=== PATIENT | female | born 1975 | race Hispanic/Latino ===

== ENCOUNTER 2016-12-07 18:34 | Emergency (ER) | payer BC ==
[2016-12-07 20:56] LABS: Anion Gap 13 mmol/L; BUN/Creatinine Ratio 24.28; Blood Urea Nitrogen 17 mg/dL (7-17); Calcium 8.3 mg/dL (8.4-10.2); Carbon Dioxide 29 mmol/L (22-30); Chloride 101.2 mmol/L (98-107); Glucose 84 mg/dL (65-100); Potassium 3.5 mmol/L (3.6-5.0); Sodium 140 mmol/L (137-145)
[2016-12-07 20:57] LABS: Hematocrit 37.4 % (30.3-42.9); Hemoglobin 12.4 gm/dl (10.1-14.3); Mean Corpuscular HGB Conc 33 % (30-34); Mean Corpuscular Hemoglobin 32 pg (28-32); Mean Corpuscular Volume 96 fl (79-97); Platelet Count 221 K/mm3 (140-440); Red Blood Count 3.89 M/mm3 (3.65-5.03); Red Cell Distribution Width 13.5 % (13.2-15.2); White Blood Count 10.7 K/mm3 (4.5-11.0)
[2016-12-07 21:49] LABS: Blastocytes % (Manual) 0 %; Hypochromasia 1+; Poikilocytosis Few
[2016-12-07 21:50] LABS: Diff Status Complete
--- NOTE | 2016-12-08 05:15 | Emergency Department Report ---
ED Shortness of Breath HPI - General Chief Complaint: Dyspnea/Respdistress Stated Complaint: CHEST PAIN,SOB Time Seen by Provider: 12/08/16 05:06 Source: patient Mode of arrival: Ambulatory Limitations: No Limitations - History of Present Illness Initial Comments: Patient is a 41-year-old female here with complaint of worsening body swelling and shortness of breath. States she's felt like she's been putting on weight over the past few weeks. Denies fevers chills nausea vomiting. No chest pain. She does have some mild peripheral edema. MD Complaint: shortness of breath -: Gradual Severity: Unable to Determine Improves With: nothing Worsens With: nothing Associated Symptoms: other (mild peripheral edema) Treatments Prior to Arrival: none - Related Data Allergies Allergy/AdvReac Type Severity Reaction Status Date / Time No Known Allergies Allergy Unverified 12/07/16 18:48 ED Review of Systems ROS: Stated complaint: CHEST PAIN,SOB Other details as noted in HPI Constitutional: no symptoms reported. denies: chills Respiratory: denies: shortness of breath Cardiovascular: edema. denies: chest pain, palpitations, orthopnea Gastrointestinal: denies: abdominal pain, nausea Musculoskeletal: denies: back pain, joint swelling, arthralgia Neurological: denies: headache, weakness ED Past Medical Hx - Past Medical History Previous Medical History?: Yes Hx Hypertension: Yes (no meds) Additional medical history: Edema - Surgical History Past Surgical History?: Yes Hx Cholecystectomy: Yes Additional Surgical History: Tubaligation - Social History Smoking Status: Never Smoker Substance Use Type: Prescribed ED Physical Exam - General Limitations: No Limitations General appearance: alert, in no apparent distress - Head Head exam: Present: atraumatic, normocephalic - Eye Eye exam: Present: normal appearance - ENT ENT exam: Present: mucous membranes moist - Neck Neck exam: Present: normal inspection - Respiratory Respiratory exam: Present: normal lung sounds bilaterally. Absent: respiratory distress - Cardiovascular Cardiovascular Exam: Present: regular rate, normal rhythm. Absent: systolic murmur, diastolic murmur, rubs, gallop - GI/Abdominal GI/Abdominal exam: Present: soft, normal bowel sounds - Extremities Exam Extremities exam: Present: normal inspection, pedal edema - Back Exam Back exam: Present: normal inspection - Neurological Exam Neurological exam: Present: alert, oriented X3 - Psychiatric Psychiatric exam: Present: normal affect, normal mood - Skin Skin exam: Present: warm, dry, intact, normal color. Absent: rash ED Course Vital Signs 12/07/16 12/08/16 12/08/16 18:48 01:38 04:25 Temperature 98 F 97.7 F Pulse Rate 72 68 75 Respiratory 22 18 Rate Blood Pressure 128/76 152/98 O2 Sat by Pulse 100 100 Oximetry 12/08/16 12/08/16 12/08/16 04:27 04:29 04:44 Temperature Pulse Rate 66 69 Respiratory 24 21 18 Rate Blood Pressure 137/78 137/78 O2 Sat by Pulse 98 98 Oximetry 12/08/16 12/08/16 12/08/16 04:47 05:21 05:23 Temperature 98.3 F Pulse Rate Respiratory Rate Blood Pressure 137/78 137/78 O2 Sat by Pulse 97 97 Oximetry 12/08/16 12/08/16 12/08/16 05:25 05:27 05:29 Temperature Pulse Rate Respiratory Rate Blood Pressure 137/78 137/78 137/78 O2 Sat by Pulse 97 98 97 Oximetry 12/08/16 12/08/16 12/08/16 05:31 05:33 05:35 Temperature Pulse Rate Respiratory Rate Blood Pressure 137/78 137/78 137/78 O2 Sat by Pulse 97 97 95 Oximetry 12/08/16 12/08/16 12/08/16 05:37 05:39 05:41 Temperature Pulse Rate Respiratory 18 Rate Blood Pressure 137/78 137/78 137/78 O2 Sat by Pulse 97 96 96 Oximetry 12/08/16 12/08/16 12/08/16 05:43 05:45 05:47 Temperature Pulse Rate Respiratory Rate Blood Pressure 137/78 137/78 137/78 O2 Sat by Pulse 94 94 95 Oximetry 12/08/16 12/08/16 12/08/16 05:49 05:51 05:53 Temperature Pulse Rate Respiratory Rate Blood Pressure 137/78 137/78 137/78 O2 Sat by Pulse 95 95 94 Oximetry 12/08/16 12/08/16 12/08/16 05:55 05:57 05:59 Temperature Pulse Rate Respiratory Rate Blood Pressure 137/78 137/78 137/78 O2 Sat by Pulse 94 97 94 Oximetry 12/08/16 12/08/16 12/08/16 06:00 06:01 06:03 Temperature Pulse Rate Respiratory Rate Blood Pressure 116/64 116/64 116/64 O2 Sat by Pulse 93 96 96 Oximetry 12/08/16 12/08/16 12/08/16 06:05 06:07 06:09 Temperature Pulse Rate Respiratory Rate Blood Pressure 116/64 116/64 116/64 O2 Sat by Pulse 97 96 95 Oximetry 12/08/16 12/08/16 12/08/16 06:11 06:13 06:15 Temperature Pulse Rate Respiratory Rate Blood Pressure 116/64 116/64 116/64 O2 Sat by Pulse 95 94 95 Oximetry 12/08/16 12/08/16 12/08/16 06:17 06:19 06:21 Temperature Pulse Rate Respiratory Rate Blood Pressure 116/64 116/64 116/64 O2 Sat by Pulse 96 95 93 Oximetry 12/08/16 12/08/16 12/08/16 06:23 06:25 06:27 Temperature Pulse Rate Respiratory Rate Blood Pressure 116/64 116/64 116/64 O2 Sat by Pulse 93 93 96 Oximetry 12/08/16 12/08/16 12/08/16 06:29 06:31 06:33 Temperature Pulse Rate Respiratory Rate Blood Pressure 116/64 116/64 116/64 O2 Sat by Pulse 94 94 94 Oximetry 12/08/16 12/08/16 12/08/16 06:35 06:37 06:39 Temperature Pulse Rate Respiratory Rate Blood Pressure 116/64 116/64 116/64 O2 Sat by Pulse 94 94 94 Oximetry 12/08/16 12/08/16 12/08/16 06:41 06:43 06:45 Temperature Pulse Rate Respiratory Rate Blood Pressure 116/64 116/64 116/64 O2 Sat by Pulse 94 94 94 Oximetry 12/08/16 12/08/16 12/08/16 06:47 06:49 06:51 Temperature Pulse Rate Respiratory Rate Blood Pressure 116/64 116/64 116/64 O2 Sat by Pulse 94 94 93 Oximetry 12/08/16 12/08/16 12/08/16 06:53 06:55 06:57 Temperature Pulse Rate Respiratory Rate Blood Pressure 116/64 116/64 116/64 O2 Sat by Pulse 93 92 94 Oximetry ED Medical Decision Making - Lab Data Result diagrams: 12/07/16 20:21 12/07/16 20:21 Laboratory Results - last 24 hr 12/07/16 12/07/16 12/07/16 20:21 20:21 23:32 WBC 10.7 RBC 3.89 Hgb 12.4 Hct 37.4 MCV 96 MCH 32 MCHC 33 RDW 13.5 Plt Count 221 Add Manual Diff Complete Total Counted 100 Seg Neuts % (Manual) 55.0 Band Neutrophils % 3.0 Lymphocytes % (Manual) 33.0 Reactive Lymphs % (Man) 0 Monocytes % (Manual) 5.0 Eosinophils % (Manual) 1.0 Basophils % (Manual) 1.0 Metamyelocytes % 2.0 Myelocytes % 0 Promyelocytes % 0 Blast Cells % 0 Nucleated RBC % Not Reportable Seg Neutrophils # Man 5.9 Band Neutrophils # 0.3 Lymphocytes # (Manual) 3.5 Abs React Lymphs (Man) 0.0 Monocytes # (Manual) 0.5 Eosinophils # (Manual) 0.1 Basophils # (Manual) 0.1 Metamyelocytes # 0.2 Myelocytes # 0.0 Promyelocytes # 0.0 Blast Cells # 0.0 WBC Morphology Not Reportable Hypersegmented Neuts Not Reportable Hyposegmented Neuts Not Reportable Hypogranular Neuts Not Reportable Smudge Cells Not Reportable Toxic Granulation Not Reportable Toxic Vacuolation Not Reportable Dohle Bodies Not Reportable Pelger-Huet Anomaly Not Reportable Connie Rods Not Reportable Platelet Estimate Appears normal Clumped Platelets Not Reportable Plt Clumps, EDTA Not Reportable Large Platelets Not Reportable Giant Platelets Not Reportable Platelet Satelliting Not Reportable Plt Morphology Comment Not Reportable RBC Morphology Not Reportable Dimorphic RBCs Not Reportable Polychromasia Not Reportable Hypochromasia 1+ Poikilocytosis Few Anisocytosis Not Reportable Microcytosis Not Reportable Macrocytosis Not Reportable Spherocytes Not Reportable Pappenheimer Bodies Not Reportable Sickle Cells Not Reportable Target Cells Not Reportable Tear Drop Cells Not Reportable Ovalocytes Not Reportable Helmet Cells Not Reportable [place] Bodies Not Reportable [place] Rings Not Reportable Robbie Cells Not Reportable Bite Cells Not Reportable Crenated Cell Not Reportable Elliptocytes Not Reportable Acanthocytes (Spur) Not Reportable Rouleaux Not Reportable Hemoglobin C Crystals Not Reportable Schistocytes Not Reportable Malaria parasites Not Reportable Shamir Bodies Not Reportable Hem Pathologist Commnt No Sodium 140 Potassium 3.5 L Chloride 101.2 Carbon Dioxide 29 Anion Gap 13 BUN 17 Creatinine 0.7 Estimated GFR > 60 BUN/Creatinine Ratio 24.28 Glucose 84 Calcium 8.3 L Troponin T < 0.010 < 0.010 12/08/16 03:14 WBC RBC Hgb Hct MCV MCH MCHC RDW Plt Count Add Manual Diff Total Counted Seg Neuts % (Manual) Band Neutrophils % Lymphocytes % (Manual) Reactive Lymphs % (Man) Monocytes % (Manual) Eosinophils % (Manual) Basophils % (Manual) Metamyelocytes % Myelocytes % Promyelocytes % Blast Cells % Nucleated RBC % Seg Neutrophils # Man Band Neutrophils # Lymphocytes # (Manual) Abs React Lymphs (Man) Monocytes # (Manual) Eosinophils # (Manual) Basophils # (Manual) Metamyelocytes # Myelocytes # Promyelocytes # Blast Cells # WBC Morphology Hypersegmented Neuts Hyposegmented Neuts Hypogranular Neuts Smudge Cells Toxic Granulation Toxic Vacuolation Dohle Bodies Pelger-Huet Anomaly Connie Rods Platelet Estimate Clumped Platelets Plt Clumps, EDTA Large Platelets Giant Platelets Platelet Satelliting Plt Morphology Comment RBC Morphology Dimorphic RBCs Polychromasia Hypochromasia Poikilocytosis Anisocytosis Microcytosis Macrocytosis Spherocytes Pappenheimer Bodies Sickle Cells Target Cells Tear Drop Cells Ovalocytes Helmet Cells [place] Bodies Frederick Rings Robbie Cells Bite Cells Crenated Cell Elliptocytes Acanthocytes (Spur) Rouleaux Hemoglobin C Crystals Schistocytes Malaria parasites Shamir Bodies Hem Pathologist Commnt Sodium Potassium Chloride Carbon Dioxide Anion Gap BUN Creatinine Estimated GFR BUN/Creatinine Ratio Glucose Calcium Troponin T < 0.010 - EKG Data -: EKG Interpreted by Me EKG shows normal: sinus rhythm - EKG Data 12/08/16 05:18 Sinus 76 normal axis and prolonged QTC of [address]-T wave changes - Radiology Data Radiology results: image reviewed interpreted by me: No acute process - Medical Decision Making Patient is a 41-year-old female here with complaint of total body edema worsening over the last several weeks. She was recently started on a Medrol Dosepak for the swelling. It is unclear to me why she was started on this as I do not believe she is having allergic reaction. Her labs are unremarkable here in the emergency Department chest x-ray is clear EKG is unremarkable. I've added on TSH but my suspicion is that this will be normal as well. If this is negative we'll discharge the patient home. I discussed the need for follow-up with primary care. Plan to discharge home. Portions of this chart were dictated with dictation software. There may be dictation errors contained within this note. Critical Care Time: No Critical care attestation.: If time is entered above; I have spent that time in minutes in the direct care of this critically ill patient, excluding procedure time. ED Disposition Clinical Impression: Peripheral edema Disposition: DC-01 TO HOME OR SELFCARE Is pt being admited?: No Does the pt Need Aspirin: No Condition: Stable Instructions: Leg Edema (ED) Additional Instructions: Please follow up with her primary care doctor as soon as possible. Referrals: PRIMARY CAREMD [Primary Care Provider] - 3-5 Days
[2016-12-08] MEDS ORDERED: TORADOL IM ONE (05:30)
[2016-12-08 07:07] VITALS: BP 116/64
--- NOTE | 2016-12-08 07:39 | XRay Report ---
Chest 2 views: History: Chest pain, shortness of breath. Findings: Normal cardiomediastinal silhouette. Trachea is midline. No consolidation, pneumothorax or pleural effusion. Impression: No acute cardiopulmonary findings
== END 2016-12-08 07:05 | disposition home or self-care (01) ==
LOC: ED 18:34
DX: R60.0 Localized edema (principal); I10 Essential (primary) hypertension; Z98.51 Tubal ligation status
CPT/HCPCS: 36415; 71020; 80048; 84443; 84484; 85007; 85025; 93005; 93010; 96372; 99285; J1885